=== PATIENT | male | born 1980 | race Caucasian/White ===

== ENCOUNTER 2025-05-06 10:34 | Day surgery (SDC) | payer OTHER ==
[~2025-05-06] VITALS: Ht 185.4 cm; Wt 117.4 kg
[2025-05-06] MEDS ORDERED: ALPRAZOLAM0.5 M1 (10:47)
[2025-05-06] MEDS ORDERED: DHEA (10:47)
[2025-05-06] MEDS ORDERED: ATORVASTATIN CA20 MG (10:47)
[2025-05-06] MEDS ORDERED: Lisinopril2.5 MG (10:47)
[2025-05-06] MEDS ORDERED: ERGO400 (10:48)
[2025-05-06] MEDS ORDERED: ASCO500 (10:48)
[2025-05-06] MEDS ORDERED: Benzocaine Oral Spray 0.5ML UD ONE (11:38)
[2025-05-06] MEDS ORDERED: Midazolam HCL 1 MG/ML 5MLVIAL ONE (12:12)
[2025-05-06 13:04] VITALS: BP 112/72
== END 2025-05-06 13:11 | disposition home or self-care (01) ==
LOC: ORSCSDS 10:34
PROVIDERS: Internal Medicine Gastroenterology
PROC: 0DJ08ZZ Inspection of Upper Intestinal Tract, Via Natural or Artificial Opening Endoscopic (ICD-10-PCS; principal; 2025-05-06 12:00)
PROC: 0DJD8ZZ Inspection of Lower Intestinal Tract, Via Natural or Artificial Opening Endoscopic (ICD-10-PCS; principal; 2025-05-06 12:00)
DX: K74.60 Unspecified cirrhosis of liver (principal); R10.30 Lower abdominal pain, unspecified; E78.5 Hyperlipidemia, unspecified; I10 Essential (primary) hypertension; F41.9 Anxiety disorder, unspecified; Z79.899 Other long term (current) drug therapy
CPT/HCPCS: A9270; J2250; J2704; J7120